=== PATIENT | female | born 1980 | race African-American/Black ===

== ENCOUNTER 2017-07-16 09:16 | Emergency (ER) | payer OTHER ==
[~2017-07-16] VITALS: Ht 152.4 cm; Wt 96.6 kg
[~2017-07-16 09:16] MED LIST: BACTRIM DS TAB1 EACH PO; FLEXERIL PO; IBUPROFEN 600600 M1 PO; NAPROSYN500 MG PO; NOHOMEMEDICATIONS; NORCO 5-325 TA1 EACH PO; NORFLEX100 MG PO; PHENERGAN 25 MG25 MG PO; PREDNISONE 20 M20 MG PO; PROAIR HFA8.5 GM INH; TUSSIONEX PENN473 ML PO; VENLAFAXIN75 MG/1 T2 PO; XANAX 0.5 MG0.5 M1
[2017-07-16 10:02] LABS: URINE BILIRUBIN NEGATIVE (Negative); URINE BLOOD 2+ (Negative); URINE CLARITY CLEAR; URINE COLOR YELLOW; URINE GLUCOSE-RANDOM* NEGATIVE (Negative); URINE KETONES NEGATIVE (Negative); URINE LEUKOCYTES NEGATIVE (Negative); URINE NITRITE NEGATIVE (Negative); URINE PROTEIN (DIPSTICK) NEGATIVE (Negative); URINE SPECIFIC GRAVITY >= 1.030 (1.005-1.035); URINE UROBILINOGEN 0.2 E.U./dl (0.2-1.0)
[2017-07-16 10:02] LABS: CALCIUM 8.9 mg/dL (8.5-10.1); CREATININE 0.7 mg/dL (0.6-1.0); POTASSIUM 4.1 mmol/L (3.5-5.1)
[2017-07-16 10:05] LABS: ABSOLUTE NEUTROPHILS 1.8 thou/uL (1.4-8.2); BASOPHILS 0.7 % (0.0-2.0); EOSINOPHILS 1.1 % (0.0-3.0); HEMATOCRIT 32.6 % (37.0-47.0); HEMOGLOBIN 10.4 gm/dL (12.0-15.0); LYMPHOCYTES 32.3 % (24.0-44.0); MONOCYTES 11.4 % (1.0-8.0); PLATELET COUNT 266 thou/uL (150-400); POLYS 54.5 % (36.0-66.0); RBC 4.35 mil/uL (4.20-5.00); RDW 15.8 % (10.5-14.5); WBC 3.3 thou/uL (4.0-11.0)
[2017-07-16 10:08] LABS: ALBUMIN 3.7 g/dL (3.4-5.0); TOTAL BILIRUBIN 0.3 mg/dL (<0.1-1.0); TOTAL PROTEIN 7.9 g/dL (6.4-8.2)
[2017-07-16 10:21] LABS: CASTS None Seen /LPF (None Seen); CRYSTALS None Seen /LPF (None Seen); SQUAMOUS >10 Many /LPF (0-3); URINE RBC None Seen /HPF (0-2); URINE WBC 0-5 Rare /HPF (0-5)
[2017-07-16] MEDS ORDERED: LEVSIN0.125 MG PO (10:38)
[2017-07-16 10:53] VITALS: BP 125/76
== END 2017-07-16 10:54 | disposition home or self-care (01) ==
LOC: ER 09:16
PROVIDERS: Physician Assistant
DX: D64.9 Anemia, unspecified (principal); R10.84 Generalized abdominal pain; T50.905A Adverse effect of unspecified drugs, medicaments and biological substances, initial encounter; Y92.89 Other specified places as the place of occurrence of the external cause

== ENCOUNTER 2019-12-02 18:12 | Emergency (ER) | payer OTHER ==
[~2019-12-02] VITALS: Ht 149.9 cm; Wt 98.9 kg
[~2019-12-02 18:12] MED LIST changes: +LEVSIN0.125 MG PO
[2019-12-02 19:21] LABS: URINE BILIRUBIN NEGATIVE (Negative); URINE BLOOD TRACE (Negative); URINE CLARITY CLEAR; URINE COLOR YELLOW; URINE GLUCOSE-RANDOM* NEGATIVE (Negative); URINE KETONES NEGATIVE (Negative); URINE LEUKOCYTES-REFLEX NEGATIVE (Negative); URINE NITRITE-REFLEX NEGATIVE (Negative); URINE PROTEIN (DIPSTICK) NEGATIVE (Negative); URINE SPECIFIC GRAVITY >= 1.030 (1.005-1.035); URINE UROBILINOGEN 0.2 E.U./dl (0.2-1.0)
[2019-12-02] MEDS ORDERED: FLEXERIL PO (20:09)
[2019-12-02] MEDS ORDERED: IBUPROFEN 600600 M1 PO (20:09)
[2019-12-02 20:22] VITALS: BP 115/75
== END 2019-12-02 20:26 | disposition home or self-care (01) ==
LOC: ER 18:12
PROVIDERS: Emergency Medicine
DX: M54.5 Low back pain (principal); Z86.2 Personal history of diseases of the blood and blood-forming organs and certain disorders involving the immune mechanism; Z79.899 Other long term (current) drug therapy